=== PATIENT | female | born 1960 | race Two or more races ===

== ENCOUNTER 2017-12-03 13:12 | Emergency (ER) | payer MEDICAID ==
[2017-12-03 13:50] VITALS: BMI 26.4
[2017-12-03 13:58] VITALS: TEMP 98.3; O2SAT 98
[2017-12-03] MEDS ORDERED: Lidocaine 2% Inj (20ml) IJ STA (15:03)
--- NOTE | 2017-12-03 15:03 | ED PDOC ---
Arrival/HPI - General Chief Complaint: Abnormal Skin Integrity Time Seen by Provider: 12/03/17 14:51 Historian: Patient - History of Present Illness Narrative History of Present Illness (Text): 12/03/17 14:58 Pt is a 57 year old female who presents with a deep laceration to the left index finger. Pt states she was cuting a pineapple when the knife slipped and she cut her finger. The finger bled until she applied pressure and came to the ED immediately. Denies numbness, loss of motor function. NUTD on tetanus. Time/Duration: Prior to Arrival Symptom Onset: Sudden Symptom Course: Unchanged Quality: Aching Severity Level: 4 Activities at Onset: Rest Context: Home Past Medical History - Provider Review Nursing Documentation Reviewed: Yes - Travel History Have you recently traveled outside [place] w/in the past 3 mons?: No - Past History Past History: No Previous - Infectious Disease Hx of Infectious Diseases: None - Reproductive Menopause: Yes - Psychiatric Hx Substance Use: No - Anesthesia Hx Anesthesia: No Hx Anesthesia Reactions: No Hx Malignant Hyperthermia: No Family/Social History - Physician Review Nursing Documentation Reviewed: Yes Family/Social History: Unknown Family HX Smoking Status: Never Smoked Hx Alcohol Use: No Hx Substance Use: No Allergies/Home Meds Allergies/Adverse Reactions: Allergies No Known Allergies Allergy (Verified 09/28/16 01:04) Review of Systems - Review of Systems Constitutional: Normal Eyes: Normal ENT: Normal Respiratory: Normal Cardiovascular: Normal Gastrointestinal: Normal Genitourinary Female: Normal Musculoskeletal: Normal Skin: Normal, Laceration (left index finger) Neurological: Normal Endocrine: Normal Hemo/Lymphatic: Normal Psychiatric: Normal Physical Exam Vital Signs Reviewed: Yes Vital Signs Temp Pulse Resp BP Pulse Ox 12/03/17 17:37 80 18 124/76 98 12/03/17 13:50 98.3 F 90 16 143/82 98 Temperature: Afebrile Blood Pressure: Normal Pulse: Regular Respiratory Rate: Normal Appearance: Positive for: Well-Appearing, Non-Toxic, Comfortable Pain Distress: Mild Mental Status: Positive for: Alert and Oriented X 3 - Systems Exam Head: Present: Atraumatic, Normocephalic Pupils: Present: PERRL Extroacular Muscles: Present: EOMI Conjunctiva: Present: Normal Mouth: Present: Moist Mucous Membranes Neck: Present: Normal Range of Motion Respiratory/Chest: Present: Clear to Auscultation, Good Air Exchange. No: Respiratory Distress, Accessory Muscle Use Cardiovascular: Present: Regular Rate and Rhythm, Normal S1, S2. No: Murmurs Abdomen: Present: Normal Bowel Sounds. No: Tenderness, Distention, Peritoneal Signs Back: Present: Normal Inspection Upper Extremity: Present: Normal Inspection. No: Cyanosis, Edema Lower Extremity: Present: Normal Inspection. No: Edema Neurological: Present: GCS=15, CN II-XII Intact, Speech Normal, Motor Func Grossly Intact, Normal Sensory Function Skin: Present: Warm, Dry, Normal Color, Laceration (left index finger). No: Rashes Psychiatric: Present: Alert, Oriented x 3, Normal Insight, Normal Concentration Medical Decision Making ED Course and Treatment: 12/03/17 15:01 Impression Pt is a 57 year old female who presents with a deep laceration to the left index finger. Approximately 1cm in length and 6mm in depth laceration of the left index finger ; motor and sensation intact, good cap refill Plan Tetanus vacc pain management suture Progress Note wound was cleaned and digital block with Lidocaine 1% as well as local infiltration 4 sutures were placed using 4.0 nylon material wound was dressed and pt was instructed on wound care and follow up Pt tolerated the procedure well and stable on DC 12/03/17 20:48 - Medication Orders Current Medication Orders: Discontinued Medications Lidocaine HCl (Lidocaine 2% 20ml Vial) 20 ml IJ ONCE STA Stop: 12/03/17 15:04 Tetanus/Reduced Diphtheria/Acell Pertussis (Boostrix Vaccine Inj) 0.5 ml IM .ONCE ONE Stop: 12/03/17 15:05 Last Admin: 12/03/17 17:16 Dose: 0.5 ml Immunization Registry Document 12/03/17 17:16 GMD (Rec: 12/03/17 17:16 GMD [id number]) Immunization Registry Consent Date 07/29/17 - Procedure PROCEDURE NOTE (Text): 12/03/17 19:15 PROCEDURE: LACERATION REPAIR Performed by the emergency provider Location: Left index finger Length: approx 1 cm Description: clean wound edges, no foreign bodies Distal CMS: ~Normal.~ No deficits.~ Neurovascularly intact. Anesthesia: Lidocaine 1% 8cc digit block and local infiltration Preparation: The wound was cleaned with NS and Bet[place]. The area was prepped and draped in the usual sterile fashion.~ Exploration: ~ The wound was explored and no foreign bodies were found. Procedure: The wound was closed with 4.0 nylon.~ There was good approximation.~ In total, 4 were used. Post-Procedure: ~Good closure and hemostasis.~ The patient tolerated the procedure well and there were no complications.~ CSM remains intact.~ Post procedure dressing applied. Disposition/Present on Arrival - Present on Arrival Any Indicators Present on Arrival: Yes History of DVT/PE: No History of Uncontrolled Diabetes: No Urinary Catheter: No History of Decub. Ulcer: No History Surgical Site Infection Following: None - Disposition Have Diagnosis and Disposition been Completed?: Yes Diagnosis: Laceration Disposition: HOME/ ROUTINE Disposition Time: 17:22 Patient Plan: Discharge Condition: GOOD Discharge Instructions (ExitCare): Laceration Repair With Stitches (DC), Common Finger Injuries, Wound Care (DC) Additional Instructions: Dear Felisa, Please take care to read the information that we have supplied for you. Keep the wound clean and dry. apply Bacitracin in about 2 days when you change your dressing. No oral antibiotics required at this time. You will need to have your sutures removed in about 7-10 days. If you notice any reddening, swelling, bleeding or excessive pain from the wound , return to the Emergency immediately or see your Primary doctor All the best in your recovery Prescriptions: Bacitracin OINT 1 applic TP Q8 #1 tube Ibuprofen [Motrin Tab] 600 mg PO Q6 PRN 5 Days #20 tab PRN Reason: pain/fever Referrals: PCP,NO [Primary Care Provider] - Follow up with primary Forms: [employer] (Irish)
[2017-12-03] MEDS ORDERED: TDAP Vaccine 0.5 mL Syr IM ONE (15:04)
[2017-12-03 17:37] VITALS: BP 124/76; PULSE 80; RESP 18
== END 2017-12-03 17:38 | disposition home or self-care (01) ==
LOC: ED 13:12
DX: S61.211A Laceration without foreign body of left index finger without damage to nail, initial encounter (principal); W26.0XXA Contact with knife, initial encounter; Y92.009 Unspecified place in unspecified non-institutional (private) residence as the place of occurrence of the external cause; Z23 Encounter for immunization

== ENCOUNTER 2017-12-08 18:44 | Emergency (ER) | payer MEDICAID, OTHER ==
[2017-12-08 18:44] VITALS: BMI 26.4
[2017-12-08] MEDS ORDERED: Tmp-Smz 800 mg-160 mg DS Tab PO STA (18:59)
--- NOTE | 2017-12-08 18:59 | ED PDOC ---
Arrival/HPI - General Chief Complaint: Abnormal Skin Integrity Time Seen by Provider: 12/08/17 18:53 Historian: Patient - History of Present Illness Narrative History of Present Illness (Text): 12/08/17 19:00 57 year old female, here about 5 days ago with lt. hand 3rd digit finger sutures , went home, here today because the suture site is painful with the redness, no fever or chills, no night sweat, no difficulty bending or extending the lt. hand 3rd digit, no rash, no other medical or psychological complaints. Past Medical History - Provider Review Nursing Documentation Reviewed: Yes - Past History Past History: No Previous - Infectious Disease Hx of Infectious Diseases: None - Reproductive Menopause: Yes - Hematological/Oncological Hx Anemia: Yes - Psychiatric Hx Substance Use: No - Surgical History Hx Cholecystectomy: Yes - Anesthesia Hx Anesthesia: No Hx Anesthesia Reactions: No Hx Malignant Hyperthermia: No Family/Social History - Physician Review Nursing Documentation Reviewed: Yes Family/Social History: Unknown Family HX Smoking Status: Never Smoked Hx Alcohol Use: No Hx Substance Use: No Allergies/Home Meds Allergies/Adverse Reactions: Allergies No Known Allergies Allergy (Verified 12/08/17 18:53) Review of Systems - Review of Systems Constitutional: absent: Fatigue, Fevers Eyes: absent: Vision Changes ENT: absent: Hearing Changes Respiratory: absent: SOB, Cough Cardiovascular: absent: Chest Pain Gastrointestinal: absent: Abdominal Pain, Nausea, Vomiting Skin: Rash, Cellulitis. absent: Pruritis, Skin Lesions, Laceration, Abscess, Ulcer Neurological: absent: Headache, Dizziness Psychiatric: absent: Anxiety, Depression Physical Exam Vital Signs Reviewed: Yes Vital Signs Temp Pulse Resp BP Pulse Ox 12/08/17 18:47 98 F 74 18 136/84 98 Temperature: Afebrile Blood Pressure: Normal Pulse: Regular Respiratory Rate: Normal Appearance: Positive for: Well-Appearing, Non-Toxic, Comfortable Pain Distress: Mild Mental Status: Positive for: Alert and Oriented X 3 - Systems Exam Head: Present: Atraumatic, Normocephalic Pupils: Present: PERRL Extroacular Muscles: Present: EOMI Conjunctiva: Present: Normal Mouth: Present: Moist Mucous Membranes Neck: Present: Normal Range of Motion Respiratory/Chest: Present: Clear to Auscultation, Good Air Exchange. No: Respiratory Distress, Accessory Muscle Use Cardiovascular: Present: Regular Rate and Rhythm, Normal S1, S2. No: Murmurs Abdomen: Present: Normal Bowel Sounds. No: Tenderness, Distention, Peritoneal Signs Back: Present: Normal Inspection Upper Extremity: Present: Normal Inspection, Other (Lt. hand 3rd digit: visible 4 sutures with swelling pressure erythematous with celluitis noted with no streaking, no flucuancy abscess, FROM without limitation, sensation intact motor 5/5, +radial pulse, capillary refill< 2 seconds, neurovascular intact. ). No: Cyanosis, Edema Lower Extremity: Present: Normal Inspection. No: Edema Neurological: Present: GCS=15, Speech Normal, Motor Func Grossly Intact, Gait Normal, Memory Normal Skin: Present: Warm, Dry, Normal Color. No: Rashes Psychiatric: Present: Alert, Oriented x 3, Normal Insight, Normal Concentration Medical Decision Making ED Course and Treatment: 12/08/17 19:01 -keflex/bactrim ds/motrin -xray r/o foreign body or gas -4 sutures removed as the suture is infected which will causes inoculated infection, irrigated with 1000cc saline, clean with betadine, -observe and reassess 12/08/17 19:29 -Case discussed with Dr. Garber, he agreed on the diagnosis/treatment/discharge plan. -Discharge home with keflex, bactrim ds, motrin, wash the wound twice daily, return to the ER in 2 days, return to the ER for any new or worsening signs or symptoms. - RAD Interpretation Radiology Orders: 12/08/17 18:59 HAND LEFT 3RD DIGIT (FINGER) [RAD] Stat - Medication Orders Current Medication Orders: Discontinued Medications Cephalexin Monohydrate (Keflex) 500 mg PO STAT STA PRN Reason: Protocol Stop: 12/08/17 19:00 Ibuprofen (Motrin Tab) 600 mg PO STAT STA Stop: 12/08/17 19:00 Trimethoprim/Sulfamethoxazole (Bactrim Ds Tab) 1 tab PO STAT STA PRN Reason: Protocol Stop: 12/08/17 19:00 - PA / CHIEF MEDICAL PHYSICIST / Resident Statement MD/DO has reviewed & agrees with the documentation as recorded. Disposition/Present on Arrival - Present on Arrival Any Indicators Present on Arrival: No History of DVT/PE: No History of Uncontrolled Diabetes: No Urinary Catheter: No History of Decub. Ulcer: No History Surgical Site Infection Following: None - Disposition Have Diagnosis and Disposition been Completed?: Yes Diagnosis: Cellulitis Disposition: HOME/ ROUTINE Disposition Time: 19:18 Patient Plan: Discharge Patient Problems: Current Active Problems Problem Status Onset Cellulitis Acute Condition: GOOD Discharge Instructions (ExitCare): Cellulitis (ED) Additional Instructions: -Discharge home with keflex, bactrim ds, motrin, wash the wound twice daily, return to the ER in 2 days, return to the ER for any new or worsening signs or symptoms. Prescriptions: Cephalexin [cephalexin] 500 mg PO QID #38 cap Ibuprofen [Motrin] 600 mg PO QID PRN #30 tab PRN Reason: Other Sulfamethoxazole/Trimethoprim [Bactrim Ds Tablet] 1 each PO BID #20 tablet Referrals: Dion Augustine [Primary Care Provider] - Follow up with primary Dre Murphy MD [Staff Provider] - Follow up with primary Forms: WORK NOTE
[2017-12-08 19:51] VITALS: BP 130/72; PULSE 72; RESP 17; TEMP 98.2; O2SAT 100
--- NOTE | 2017-12-09 09:14 | RAD ---
PROCEDURE: Left middle finger radiographs. HISTORY: lt. hand 3rd digit cellulitis COMPARISON: None. TECHNIQUE: AP radiograph of the left hand, as well as spot oblique and lateral images of left middle finger were obtained. FINDINGS: LEFT MIDDLE FINGER: Left middle finger normal, without fracture of focal lesion. Remainder of the left hand (as seen on the AP view) is grossly unremarkable. JOINTS: Advanced osteoarthritis appreciate throughout the interphalangeal joints diffusely and also the basal joint. SOFT TISSUES: Prominent edema is appreciate the radial side of the middle phalanx left long finger with lesser edematous changes seen at the ulnar side. No retained radiodense foreign body or emphysema soft tissue changes are encountered. No definite periosteal reaction or erosion to suggest osteomyelitis however MRI is available for correlation if clinically warranted for OTHER FINDINGS: None. IMPRESSION: Prominent soft edema is seen at the midportion of the middle phalanx more in the radial the lateral sides without overt radiographic signs of osteomyelitis. Follow-up MRI can be utilized for further characterization if clinically warranted. 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
== END 2017-12-08 19:51 | disposition home or self-care (01) ==
LOC: ED 18:44
DX: L03.012 Cellulitis of left finger (principal)

== ENCOUNTER 2018-03-20 21:23 | Observation (INO) | payer MEDICAID ==
[2018-03-20 21:44] VITALS: BMI 23.4
[2018-03-20] MEDS ORDERED: Sodium Chloride 0.9% 1,000 ML IV SCH (22:00)
[2018-03-20 22:25] LABS: BASO # 0.01 K/mm3 (0.0-2.0); BASO % 0.2 % (0.0-3.0); EOS # 0.1 (0.0-0.7); EOS % 0.8 % (1.5-5.0); GRAN # 3.17 (1.4-6.5); GRAN % 51.8 % (50.0-68.0); HEMOGLOBIN 13.7 g/dL (12.0-16.0); LYMPH # 2.6 (1.2-3.4); LYMPH % 42.9 % (22.0-35.0); MEAN CELL VOLUME 74.4 fl (80.0-105.0); MEAN CORPUSCULAR HEMOGLOBIN 25.8 pg (25.0-35.0); MEAN CORPUSCULAR HGB CONC 34.7 g/dl (31.0-37.0); MEAN PLATELET VOLUME 10.2 fl (7.0-11.0); MONO # 0.3 (0.1-0.6); MONO % 4.3 % (1.0-6.0); RBC 5.31 10^6/uL (3.5-6.1); RED CELL DISTRIBUTION WIDTH 12.8 % (11.5-14.5); WHITE BLOOD COUNT 6.1 10^3/ul (4.5-11.0)
[2018-03-20 22:48] LABS: ALB/GLOB RATIO 1.2 (1.1-1.8); ALBUMIN 3.8 g/dL (3.0-4.8); ALT/SGPT 92 U/L (7-56); AST/SGOT 54 U/L (14-36); BLOOD UREA NITROGEN 14 mg/dL (7-21); CALCIUM 8.4 mg/dL (8.4-10.5); GFR AFRICAN-AMERICAN > 60; GFR NON-AFRICAN AMERICAN > 60
--- NOTE | 2018-03-20 23:08 | ED PDOC ---
Arrival/HPI - General Chief Complaint: High Blood Sugar Time Seen by Provider: 03/20/18 21:34 Historian: Patient - History of Present Illness Narrative History of Present Illness (Text): 03/20/18 21:47 57 year old female, with no significant past medical history, presents to the Emergency department complaining of elevated blood sugar since today. Patient states she was seen at [facility] satellite Emergency department earlier today, where she was informed of a blood sugar level of approximately 800 mg/dL. Patient was provided IV fluids with improvement to symptoms, blood sugar level of 600mg/dL and was asked to be transferred to [facility] for further evaluation. However patient denied transfer and signed out against medical advice. Patient now presents to the Emergency department for continuation of her treatment. Patient denies any somatic complaints. Patient denies any fever, chills, nausea, vomiting, diarrhea , abdominal pain, diaphoresis, polyuria, polydipsia, chest pain, shortness of breath or any other complaints. Time/Duration: 24 hours Symptom Onset: Gradual Symptom Course: Improving Activities at Onset: Light Context: Home Past Medical History - Provider Review Nursing Documentation Reviewed: Yes - Past History Past History: No Previous - Infectious Disease Hx of Infectious Diseases: None - Hematological/Oncological Hx Anemia: Yes - Psychiatric Hx Substance Use: No - Surgical History Hx Cholecystectomy: Yes - Anesthesia Hx Anesthesia: No Hx Anesthesia Reactions: No Hx Malignant Hyperthermia: No Family/Social History - Physician Review Nursing Documentation Reviewed: Yes Family/Social History: No Known Family HX Smoking Status: Never Smoked Hx Alcohol Use: No Hx Substance Use: No Allergies/Home Meds Allergies/Adverse Reactions: Allergies No Known Allergies Allergy (Verified 03/21/18 00:53) Home Medications: Home Meds Medication Instructions Recorded Confirmed Unobtainable 03/20/18 03/21/18 Review of Systems - Physician Review All systems were reviewed & negative as marked: Yes - Review of Systems Constitutional: Normal. absent: Fevers Eyes: Normal ENT: Normal Respiratory: Normal. absent: SOB Cardiovascular: Normal. absent: Chest Pain Gastrointestinal: Normal. absent: Abdominal Pain, Diarrhea, Nausea, Vomiting Genitourinary Female: Normal Musculoskeletal: Normal Skin: Normal Neurological: Normal Endocrine: Normal. absent: Diaphoresis, Polyuria, Polydipsia Hemo/Lymphatic: Normal Psychiatric: Normal Physical Exam Vital Signs Reviewed: Yes Vital Signs Temp Pulse Resp BP Pulse Ox 03/20/18 23:55 78 18 156/79 H 98 03/20/18 21:44 98 F 91 H 17 136/78 99 Temperature: Afebrile Blood Pressure: Normal Pulse: Regular Respiratory Rate: Normal Appearance: Positive for: Well-Appearing, Non-Toxic, Comfortable Pain Distress: None Mental Status: Positive for: Alert and Oriented X 3 Finger Stick Blood Glucose: 323 - Systems Exam Head: Present: Atraumatic, Normocephalic Pupils: Present: PERRL Extroacular Muscles: Present: EOMI Conjunctiva: Present: Normal Mouth: Present: Moist Mucous Membranes Neck: Present: Normal Range of Motion Respiratory/Chest: Present: Clear to Auscultation, Good Air Exchange. No: Respiratory Distress, Accessory Muscle Use Cardiovascular: Present: Regular Rate and Rhythm, Normal S1, S2. No: Murmurs Abdomen: No: Tenderness, Distention, Peritoneal Signs Back: Present: Normal Inspection Upper Extremity: Present: Normal Inspection. No: Cyanosis, Edema Lower Extremity: Present: Normal Inspection. No: Edema Neurological: Present: GCS=15, CN II-XII Intact, Speech Normal Skin: Present: Warm, Dry, Normal Color. No: Rashes Psychiatric: Present: Alert, Oriented x 3, Normal Insight, Normal Concentration Medical Decision Making ED Course and Treatment: 03/20/18 21:43 Impression: 57 year old female presents to the Emergency department for elevated blood sugar. Differential Diagnosis included but are not limited to: Diabetes Plan: -- Labs -- IV Fluids -- Reassess and disposition Prior Visits: Notes and results from previous visits were reviewed. Progress Notes: 03/20/18 21:50 Discussed case with medical record retrieval specialist and Dr. Jones, who are aware and agrees with Emergency department management plan, accepts patient under their service to Observation for new onset of diabetes. - Lab Interpretations Lab Results: 03/20/18 22:13 03/20/18 22:13 Lab Results 03/20/18 22:13: Serum Osmolality 308 H 03/20/18 22:13: Sodium 138, Potassium 4.2, Chloride 102, Carbon Dioxide 27, Anion Gap 13, BUN 14, Creatinine 0.5 L, Est GFR ( Amer) > 60, Est GFR ( Non-Af Amer) > 60, Random Glucose 393 H*, Calcium 8.4, Total Bilirubin 0.7, AST 54 H, ALT 92 H, Alkaline Phosphatase 210 H, Total Protein 7.1, Albumin 3.8, Globulin 3.3, Albumin/Globulin Ratio 1.2 03/20/18 22:13: WBC 6.1, RBC 5.31, Hgb 13.7, Hct 39.5, MCV 74.4 L, MCH 25.8, MCHC 34.7, RDW 12.8, Plt Count 146, MPV 10.2, Gran % 51.8, Lymph % (Auto) 42.9 H , Castro % (Auto) 4.3, Eos % (Auto) 0.8 L, Baso % (Auto) 0.2, Gran # 3.17, Lymph # (Auto) 2.6, Castro # (Auto) 0.3, Eos # (Auto) 0.1, Baso # (Auto) 0.01 03/20/18 21:43: POC Glucose (mg/dL) 323 H - Medication Orders Current Medication Orders: Sodium Chloride (Sodium Chloride 0.9%) 1,000 mls @ 150 mls/hr IV .[id number] [facility] Last Admin: 03/21/18 00:02 Dose: 150 mls/hr eMAR Start Stop Document 03/21/18 00:02 RD (Rec: 03/21/18 00:02 RD [id number]) Intravenous Solution Start Date 03/21/18 Start Time 00:02 Insulin Human Lispro (Humalog Med) 0 units SC [facility] PRN Reason: Protocol Last Admin: 03/21/18 00:28 Dose: 2 unit MAR Blood Glucose Document 03/21/18 00:28 RD (Rec: 03/21/18 00:29 RD [id number]) Blood Glucose Finger Stick Blood Glucose (70-120) 310 Subcutaneous Administrations Document 03/21/18 00:28 RD (Rec: 03/21/18 00:29 RD [id number]) Injection Site MAR Injection Site Left Arm Charges for Administration # of Subcutaneous Administrations 1 Discontinued Medications Sodium Chloride (Sodium Chloride 0.9%) 1,000 mls @ 80 mls/hr IV .[id number] [facility] Last Admin: 03/20/18 22:09 Dose: 80 mls/hr eMAR Start Stop Document 03/20/18 22:09 RD (Rec: 03/20/18 22:09 RD [id number]) Intravenous Solution Start Date 03/20/18 Start Time 22:09 End Date 18 End time 00:02 Total Infusion Time 113 - Scribe Statement The provider has reviewed the documentation as recorded by the Scribe Mehdi Albert. All medical record entries made by the Kerriibe were at my direction and personally dictated by me. I have reviewed the chart and agree that the record accurately reflects my personal performance of the history, physical exam, medical decision making, and the department course for this patient. I have also personally directed, reviewed, and agree with the discharge instructions and disposition. Disposition/Present on Arrival - Present on Arrival Any Indicators Present on Arrival: No History of DVT/PE: No History of Uncontrolled Diabetes: No Urinary Catheter: No History of Decub. Ulcer: No History Surgical Site Infection Following: None - Disposition Have Diagnosis and Disposition been Completed?: Yes Diagnosis: New onset type 2 diabetes mellitus Disposition: HOSPITALIZED Disposition Time: 23:00 Condition: FAIR
[2018-03-21] MEDS: Sodium Chloride 0.9% 1,000 ML IV SCH ×2 (00:02→21:27)
--- NOTE | 2018-03-21 00:14 | CP.PCM.HP ---
<Scott Felder - Last Filed: 03/21/18 00:55> History of Present Illness - History of Present Illness History of Present Illness: Ms. Reece is a 57 year old female with no PMH who presents with elevated blood sugar. She initially presented to her primary care physician for concerns of worsening polyuria and polydypsia and she was found to have a blood sugar of over 800. She was provided with IV fluids with improvement of symptoms and her blood sugar began to decrease. She was asked to be transferred to [facility] but refused admission there and came here to continue treatment. On admission here her blood sugar was 393. She reports increasing polydypsia and polyuria worsening over the past few months but denies fever, chills, chest pain, SOB, nausea, vomiting, abdominal pain. She admits to a family history of late-onset diabetes in her father. Denies family history of autoimmune diseases or cancers. PMHx: none PSHx: bladder sling Meds: none Allergies: NKDA Fam Hx: father, brother, and sister all have DM2 Social Hx: denies tobacco, alcohol, or drug use. Present on Admission - Present on Admission Any Indicators Present on Admission: Yes History of DVT/PE: No History of Uncontrolled Diabetes: Yes Urinary Catheter: No Decubitus Ulcer Present: No Review of Systems - Review of Systems All systems: reviewed and no additional remarkable complaints except (as mentioned in HPI) Past Patient History - Infectious Disease Hx of Infectious Diseases: None - Past Social History Smoking Status: Never Smoked - HEMATOLOGICAL/ONCOLOGICAL Hx Anemia: Yes - PSYCHIATRIC Hx Substance Use: No - SURGICAL HISTORY Hx Cholecystectomy: Yes - ANESTHESIA Hx Anesthesia: No Hx Anesthesia Reactions: No Hx Malignant Hyperthermia: No Meds Allergies/Adverse Reactions: Allergies Allergy/AdvReac Type Severity Reaction Status Date / Time No Known Allergies Allergy Verified 03/21/18 00:53 Physical Exam - Constitutional Appears: No Acute Distress - Head Exam Head Exam: ATRAUMATIC, NORMAL INSPECTION, NORMOCEPHALIC - Eye Exam Eye Exam: Normal appearance, PERRL - ENT Exam ENT Exam: Mucous Membranes Dry - Neck Exam Neck exam: Positive for: Normal Inspection - Respiratory Exam Respiratory Exam: Clear to Auscultation Bilateral, NORMAL BREATHING PATTERN. absent: Accessory Muscle Use, Chest Wall Tenderness, Rales, Rhonchi, Wheezes, Respiratory Distress, Stridor - Cardiovascular Exam Cardiovascular Exam: REGULAR RHYTHM, RRR, +S1, +S2. absent: Diastolic murmur, Gallop, Rubs, Systolic Murmur - GI/Abdominal Exam GI & Abdominal Exam: Normal Bowel Sounds, Soft. absent: Guarding, Rebound, Tenderness - Extremities Exam Extremities exam: Positive for: normal inspection. Negative for: calf tenderness, pedal edema - Neurological Exam Neurological exam: Alert, Oriented x3 - Psychiatric Exam Psychiatric exam: Normal Affect, Normal Mood - Skin Skin Exam: Dry, Intact, Warm Results - Vital Signs Recent Vital Signs: Last Vital Signs Temp 98 F 03/20/18 21:44 Pulse 78 03/20/18 23:55 Resp 18 03/20/18 23:55 BP 156/79 H 03/20/18 23:55 Pulse Ox 98 03/20/18 23:55 - Labs Result Diagrams: 03/20/18 22:13 03/20/18 22:13 Assessment & Plan - Assessment and Plan (Free Text) Assessment: Ms. Reece is a 57 year old female with no PMH who presents with new onset hyperglycemia and hyperosmolar hyperosmotic state. 1. Hyperglycemia/HHS -New onset diabetes mellitus diagnosis -Patient asymptomatic, no leukocytosis -Responding well to IVF, no need for insulin drip -Continue NS @ 150 cc/hr -Humalog sliding scale -Hemoglobin A1c, serum osmolality, UA ordered -Potassium of 4.2 on admission, will continue to monitor as patient continues insulin therapy Patient discussed with Dr. Mely Jones attending. Scott Felder DO Internal Medicine Resident PGY-1 <bIeth Jones - Last Filed: 03/22/18 01:00> Results - Vital Signs Recent Vital Signs: Last Vital Signs Temp 98.7 F 03/21/18 22:00 Pulse 75 03/21/18 22:00 Resp 18 03/21/18 22:00 BP 106/57 L 03/21/18 22:00 Pulse Ox 95 03/21/18 22:00 - Labs Result Diagrams: 03/21/18 06:45 03/21/18 06:45 Labs: Laboratory Results - last 24 hr 03/21/18 03/21/18 03/21/18 00:30 03:15 06:40 WBC RBC Hgb Hct MCV MCH MCHC RDW Plt Count MPV Gran % Lymph % (Auto) [place] % (Auto) Eos % (Auto) Baso % (Auto) Gran # Lymph # (Auto) [place] # (Auto) Eos # (Auto) Baso # (Auto) Sodium Potassium Chloride Carbon Dioxide Anion Gap BUN Creatinine Est GFR ( Amer) Est GFR (Non-Af Amer) POC Glucose (mg/dL) 303 H 282 H Random Glucose Calcium Total Bilirubin AST ALT Alkaline Phosphatase Total Protein Albumin Globulin Albumin/Globulin Ratio Triglycerides Cholesterol LDL Cholesterol Direct HDL Cholesterol TSH 3rd Generation Urine Color Yellow Urine Appearance Clear Urine pH 6.0 Ur Specific [place] 1.020 Urine Protein Negative Urine Glucose (UA) >=1000 Urine Ketones 40 H Urine Blood Small H Urine Nitrate Negative Urine Bilirubin Negative Urine Urobilinogen 0.2 Ur Leukocyte Esterase Negative Urine RBC 2 - 5 Urine WBC 0 - 2 Ur Epithelial Cells 1 - 3 Urine Bacteria Rare Urine Other Uyeast Hepatitis A IgM Ab Hep Bs Antigen Hep B Core IgM Ab Hepatitis C Antibody 03/21/18 03/21/18 03/21/18 06:45 06:45 06:45 WBC 4.8 D RBC 4.74 Hgb 11.9 L Hct 35.5 L MCV 74.9 L MCH 25.1 MCHC 33.5 RDW 12.9 Plt Count 128 MPV 10.5 Gran % 45.4 L Lymph % (Auto) 47.2 H [place] % (Auto) 5.7 Eos % (Auto) 1.5 Baso % (Auto) 0.2 Gran # 2.17 Lymph # (Auto) 2.3 [place] # (Auto) 0.3 Eos # (Auto) 0.1 Baso # (Auto) 0.01 Sodium 142 Potassium 4.0 Chloride 106 Carbon Dioxide 27 Anion Gap 13 BUN 12 Creatinine 0.6 L Est GFR ( Amer) > 60 Est GFR (Non-Af Amer) > 60 POC Glucose (mg/dL) Random Glucose 309 H* D Calcium 8.0 L Total Bilirubin 0.7 AST 44 H ALT 72 H Alkaline Phosphatase 154 H D Total Protein 6.0 Albumin 3.2 Globulin 2.8 Albumin/Globulin Ratio 1.1 Triglycerides 269 H Cholesterol 174 LDL Cholesterol Direct 105 HDL Cholesterol 27 L TSH 3rd Generation 2.13 Urine Color Urine Appearance Urine pH Ur Specific [place] Urine Protein Urine Glucose (UA) Urine Ketones Urine Blood Urine Nitrate Urine Bilirubin Urine Urobilinogen Ur Leukocyte Esterase Urine RBC Urine WBC Ur Epithelial Cells Urine Bacteria Urine Other Hepatitis A IgM Ab Hep Bs Antigen Hep B Core IgM Ab Hepatitis C Antibody 03/21/18 03/21/18 03/21/18 07:30 12:00 16:24 WBC RBC Hgb Hct MCV MCH MCHC RDW Plt Count MPV Gran % Lymph % (Auto) [place] % (Auto) Eos % (Auto) Baso % (Auto) Gran # Lymph # (Auto) [place] # (Auto) Eos # (Auto) Baso # (Auto) Sodium Potassium Chloride Carbon Dioxide Anion Gap BUN Creatinine Est GFR ( Amer) Est GFR (Non-Af Amer) POC Glucose (mg/dL) 215 H 259 H Random Glucose Calcium Total Bilirubin AST ALT Alkaline Phosphatase Total Protein Albumin Globulin Albumin/Globulin Ratio Triglycerides Cholesterol LDL Cholesterol Direct HDL Cholesterol TSH 3rd Generation Urine Color Urine Appearance Urine pH Ur Specific [place] Urine Protein Urine Glucose (UA) Urine Ketones Urine Blood Urine Nitrate Urine Bilirubin Urine Urobilinogen Ur Leukocyte Esterase Urine RBC Urine WBC Ur Epithelial Cells Urine Bacteria Urine Other Hepatitis A IgM Ab Negative Hep Bs Antigen Negative Hep B Core IgM Ab Negative Hepatitis C Antibody Negative 03/21/18 21:23 WBC RBC Hgb Hct MCV MCH MCHC RDW Plt Count MPV Gran % Lymph % (Auto) [place] % (Auto) Eos % (Auto) Baso % (Auto) Gran # Lymph # (Auto) [place] # (Auto) Eos # (Auto) Baso # (Auto) Sodium Potassium Chloride Carbon Dioxide Anion Gap BUN Creatinine Est GFR ( Amer) Est GFR (Non-Af Amer) POC Glucose (mg/dL) 290 H Random Glucose Calcium Total Bilirubin AST ALT Alkaline Phosphatase Total Protein Albumin Globulin Albumin/Globulin Ratio Triglycerides Cholesterol LDL Cholesterol Direct HDL Cholesterol TSH 3rd Generation Urine Color Urine Appearance Urine pH Ur Specific [place] Urine Protein Urine Glucose (UA) Urine Ketones Urine Blood Urine Nitrate Urine Bilirubin Urine Urobilinogen Ur Leukocyte Esterase Urine RBC Urine WBC Ur Epithelial Cells Urine Bacteria Urine Other Hepatitis A IgM Ab Hep Bs Antigen Hep B Core IgM Ab Hepatitis C Antibody
[2018-03-21 01:02] LABS: URINE BILIRUBIN NEGATIVE (NEGATIVE); URINE BLOOD SMALL (NEGATIVE); URINE GLUCOSE (UA) >=1000 mg/dL (NEGATIVE); URINE LEUKOCYTE ESTERASE NEGATIVE Leu/uL (NEGATIVE); URINE PROTEIN NEGATIVE mg/dL (<30 mg/dL); URINE UROBILINOGEN 0.2 E.U./dL (<1 E.U./dL)
[2018-03-21 01:12] LABS: URINE APPEARANCE CLEAR (CLEAR); URINE COLOR YELLOW (YELLOW)
[2018-03-21 01:29] LABS: URINE BACTERIA RARE (NEG); URINE WBC 0 - 2 /hpf (0-6)
[2018-03-21 07:10] LABS: BASO # 0.01 K/mm3 (0.0-2.0); BASO % 0.2 % (0.0-3.0); EOS # 0.1 (0.0-0.7); EOS % 1.5 % (1.5-5.0); GRAN # 2.17 (1.4-6.5); GRAN % 45.4 % (50.0-68.0); HEMOGLOBIN 11.9 g/dL (12.0-16.0); LYMPH # 2.3 (1.2-3.4); LYMPH % 47.2 % (22.0-35.0); MEAN CELL VOLUME 74.9 fl (80.0-105.0); MEAN CORPUSCULAR HEMOGLOBIN 25.1 pg (25.0-35.0); MEAN CORPUSCULAR HGB CONC 33.5 g/dl (31.0-37.0); MEAN PLATELET VOLUME 10.5 fl (7.0-11.0); MONO # 0.3 (0.1-0.6); MONO % 5.7 % (1.0-6.0); RBC 4.74 10^6/uL (3.5-6.1); RED CELL DISTRIBUTION WIDTH 12.9 % (11.5-14.5); WHITE BLOOD COUNT 4.8 10^3/ul (4.5-11.0)
[2018-03-21] MEDS ORDERED: Insulin Lispro (humaLOG) MEDIUM Coverage SC SCH (07:30)
[2018-03-21] MEDS ORDERED: Dextrose 50% SYRINGE Inj (50 ml) IV PRN (07:39)
[2018-03-21 07:40] LABS: LDL CHOLESTEROL 105 mg/dL (0-129)
[2018-03-21 07:51] LABS: ALB/GLOB RATIO 1.1 (1.1-1.8); ALBUMIN 3.2 g/dL (3.0-4.8); ALT/SGPT 72 U/L (7-56); AST/SGOT 44 U/L (14-36); BLOOD UREA NITROGEN 12 mg/dL (7-21); GFR AFRICAN-AMERICAN > 60; GFR NON-AFRICAN AMERICAN > 60; HDL CHOLESTEROL 27 mg/dL (29-60)
[2018-03-21] MEDS ORDERED: Insulin Lispro 1 UNITS/0.01 ML SC STA (08:08)
[2018-03-21] MEDS ORDERED: Insulin Lispro (HUMAlog) HIGH Coverage SC SCH (11:30)
[2018-03-21 11:50] LABS: HEPATITIS B SURFACE AG Negative (NEGATIVE)
[2018-03-21 11:57] LABS: HEPATITIS A IGM NEGATIVE (NEGATIVE); HEPATITIS B CORE AB NEGATIVE (NEGATIVE)
[2018-03-21 12:07] LABS: HEPATITIS C ANTIBODY NEGATIVE (NEGATIVE)
[2018-03-21] MEDS: Insulin Lispro 1 UNITS/0.01 ML SC SCH (17:07)
[2018-03-21] MEDS: Insulin Lispro (humaLOG) LOW Coverage SC SCH ×2 (17:08→21:30)
[2018-03-21] MEDS ORDERED: Insulin Detemir 100 units/ml Vial (Levemir) SC SCH (22:00)
--- NOTE | 2018-03-21 23:16 | CON ---
DATE: 03/21/2018 ENDOCRINOLOGY CONSULTATION LOCATION: Room 569. HISTORY OF PRESENT ILLNESS: This is a 57-year-old female with recent evaluation and diagnosis of uncontrolled type 2 insulin-requiring diabetes, presenting here from her primary physician's office with glucose levels over 800 mg/dL. She was actually advised to go to the [facility], but refused and came to the [facility] [place] for evaluation and eventual admission and is being referred now for diabetic management. PAST MEDICAL HISTORY As mentioned above, essentially unremarkable. PAST SURGICAL HISTORY: She had a prior cholecystectomy and also placement of a bladder sling. MEDICATIONS: No intake of any medications at this time. FAMILY HISTORY: Strongly positive for diabetes with her father and brother and a sister having type 2 diabetes. SOCIAL HISTORY: Patient has a supportive family. No known substance use. REVIEW OF SYSTEMS: As mentioned above. Admits to generalized body weakness with increasing dizziness and lightheadedness, worse in the last few days prior to admission. Also, admits to increasing hypersomnolence and lethargy with easy fatigability and tiredness. No chest pains or palpitations, but admits to occasional shortness of breath, especially on exertion. Her oral intake has been variable with nausea, dyspepsia, and vague upper abdominal pains. Admits to marked polyuria, nocturia, and polydipsia in the last month, but worse in the last few days prior to admission. Also admits to lower extremity paresthesias. PHYSICAL EXAMINATION: GENERAL: An average built female, in no apparent distress. VITAL SIGNS: Blood pressure of 140/80, pulse of 70 beats per minute and regular, temperature 98, respirations 20, height is 5 feet 2 inches, weight is 120 pounds. HEENT: Head: Normocephalic. Eyes: Anicteric with pink conjunctivae. Funduscopy is not possible at this time. Ears, nose and throat: Otherwise normal. NECK: Supple. Thyroid gland is normal in size. No carotid bruits or any cervical adenopathy. CARDIOPULMONARY: Some adynamic precordium. S1, S2 is rapid and regular. LUNGS: Clear to auscultation. ABDOMEN: Flat, soft with positive bowel sounds. EXTREMITIES: No peripheral edema. Pulses are +2 bilaterally. LABORATORY DATA: Her chemistries today show a BUN of 12, sodium 142, potassium 4, chloride 106, CO2 of 27, glucose 309, and creatinine 0.6. Her glucose levels have ranged from 215 to 282 and 303 and 310 mg/dL. ASSESSMENT: This is a 57-year-old female with uncontrolled and decompensated type 2 insulin-requiring diabetes of recent onset and evaluation, presenting here with hyperosmolar hyperglycemic state and dehydration with metabolic and clinical symptoms of marked osmotic diuresis from the hyperglycemic accelerations as noted. PLAN OF MANAGEMENT: Because of the presence of marked glucose toxicity with persistent hyperglycemic accelerations, the initiation of insulin therapy is the most optimal and effective management to improve her metabolic profile rather quickly. Many of the type 2 diabetics who are recently diagnosed may actually do very well on oral hypoglycemic therapy down the line as the pancreas recovers its endogenous pancreatic reserve. However, at this time, to give her oral hypoglycemic therapy will not work because of the marked glucose toxicity and increased insulin resistance thereof. We will initiate a basal and more physiologic basal and bolus insulin drug combination with Humalog to be started at 12 units subcu t.i.d. before meals to start today. We will also add basal insulin with Levemir to be given as 24 units subcu at bedtime daily as given. We will titrate incrementally as indicated to optimize metabolic control. We will modify the coverage scale to obviate hypoglycemia and detailed orders have been given. We will also continue the vigorous IV hydration to replenish the lost fluids and electrolytes as expected and also to improve her metabolic and clinical symptoms thereof. We will initiate diabetic education to include insulin self-administration and home glucose monitoring at this time. We will follow this. Nguyen Dent MD
[2018-03-22 06:37] LABS: BASO # 0.01 K/mm3 (0.0-2.0); BASO % 0.3 % (0.0-3.0); EOS # 0.1 (0.0-0.7); GRAN # 1.51 (1.4-6.5); GRAN % 38.2 % (50.0-68.0); HEMOGLOBIN 11.3 g/dL (12.0-16.0); LYMPH # 2.1 (1.2-3.4); LYMPH % 53.4 % (22.0-35.0); MEAN CELL VOLUME 74.7 fl (80.0-105.0); MEAN CORPUSCULAR HEMOGLOBIN 25.1 pg (25.0-35.0); MEAN CORPUSCULAR HGB CONC 33.5 g/dl (31.0-37.0); MEAN PLATELET VOLUME 10.4 fl (7.0-11.0); MONO # 0.2 (0.1-0.6); MONO % 6.1 % (1.0-6.0); RBC 4.51 10^6/uL (3.5-6.1)
[2018-03-22 07:18] LABS: ALBUMIN 2.8 g/dL (3.0-4.8); ALT/SGPT 76 U/L (7-56); AST/SGOT 53 U/L (14-36); BLOOD UREA NITROGEN 10 mg/dL (7-21); CALCIUM 7.7 mg/dL (8.4-10.5); GFR AFRICAN-AMERICAN > 60; GFR NON-AFRICAN AMERICAN > 60
[2018-03-22 08:20] VITALS: PULSE 63; RESP 20
--- NOTE | 2018-03-22 08:23 | CARD ---
APPROVED REPORT EKG Measurement Heart [id number] <Conclusion> Normal sinus rhythm Normal ECG
[2018-03-22] MEDS: Insulin Lispro 1 UNITS/0.01 ML SC SCH (08:50)
[2018-03-22] MEDS: Insulin Lispro (humaLOG) LOW Coverage SC SCH ×3 (08:51→16:43)
[2018-03-22] MEDS ORDERED: Potassium Chloride 20 mEq ER Tab PO STA (09:19)
[2018-03-22] MEDS ORDERED: Potassium Chloride 20 mEq ER Tab PO ONE ×2 (11:49→15:31)
[2018-03-22] MEDS ORDERED: Magnesium Sulfate 1 gm in D5W 1 GM/100 ML BAG IVPB ONE (15:31)
--- NOTE | 2018-03-22 15:51 | PN ---
DATE: 03/22/2018 ENDOCRINOLOGY FOLLOWUP NOTE LOCATION: Room 569. SUBJECTIVE: This is a 57-year-old female with recent evaluation and diagnosis of uncontrolled type 2 insulin-requiring diabetes, now being followed closely for metabolic management. Her glycemic levels were initially fluctuating, but have improved dramatically overnight as noted. Her glucose values today have ranged from 89 to 205 mg/dL. Her latest chemistry showed a BUN of 10, sodium 141, potassium 3.2, chloride 106, CO2 29, glucose 199 and creatinine 0.4. The bedtime glucose was still elevated at 290 mg/dL. Her hemoglobin A1c is 12.9%, which is quite elevated and expected with the recent diagnosis and the lack of medical treatment just before admission since she was just diagnosed with this admission in the hospital. As discussed with the medical technologist chief, we would expect improvement of her pancreatic endogenous reserve with the initiation of insulin therapy and would do very well over the next few weeks on oral hypoglycemic therapy given in combination or basal insulin at the lower dose given with oral hypoglycemic therapy with mealtimes. She needs to be followed very closely by her primary physician for insulin dose reduction and adjustment and switch her over to oral hypoglycemic therapy. With the glucose toxicity on admission and also inpatient, we expect tremendous increased insulin resistance thereof and that is the imperative need for insulin therapy for inpatient diabetic management. We will lower the basal and bolus insulin regimen for eventual discharge today to Humalog given as 10 units before each meal and Levemir given as 20 units at bedtime daily to start tonight. We will follow. Nguyen Dent MD
[2018-03-22] MEDS ORDERED: Insulin Lispro 1 UNITS/0.01 ML SC SCH (16:30)
[2018-03-22 17:28] VITALS: BP 98/60; TEMP 97.6; O2SAT 100
--- NOTE | 2018-03-22 21:45 | CP.PCM.DIS ---
<ElviaNissaurszula L - Last Filed: 03/22/18 21:49> Provider - Provider Date of Admission: 03/20/18 23:01 Attending physician: Zhanna Smith DO Consults: Endocrinology: Dr. Dent Time Spent in preparation of Discharge (in minutes): 45 Diagnosis - Discharge Diagnosis (1) New onset type 2 diabetes mellitus Status: Acute (2) Transaminitis Status: Acute (3) Anemia Status: Chronic (4) Hypertriglyceridemia Status: Acute Hospital Course - Lab Results Lab Results: Most Recent Lab Values WBC 4.0 10^3/ul (4.5-11.0) L 03/22/18 06:10 RBC 4.51 10^6/uL (3.5-6.1) 03/22/18 06:10 Hgb 11.3 g/dL (12.0-16.0) L 03/22/18 06:10 Hct 33.7 % (36.0-48.0) L 03/22/18 06:10 MCV 74.7 fl (80.0-105.0) L 03/22/18 06:10 MCH 25.1 pg (25.0-35.0) 03/22/18 06:10 MCHC 33.5 g/dl (31.0-37.0) 03/22/18 06:10 RDW 13.0 % (11.5-14.5) 03/22/18 06:10 Plt Count 100 10^3/uL (120.0-450.0) L 03/22/18 06:10 MPV 10.4 fl (7.0-11.0) 03/22/18 06:10 Gran % 38.2 % (50.0-68.0) L 03/22/18 06:10 Lymph % (Auto) 53.4 % (22.0-35.0) H 03/22/18 06:10 Grainger % (Auto) 6.1 % (1.0-6.0) H 03/22/18 06:10 Eos % (Auto) 2.0 % (1.5-5.0) 03/22/18 06:10 Baso % (Auto) 0.3 % (0.0-3.0) 03/22/18 06:10 Gran # 1.51 (1.4-6.5) 03/22/18 06:10 Lymph # (Auto) 2.1 (1.2-3.4) 03/22/18 06:10 Grainger # (Auto) 0.2 (0.1-0.6) 03/22/18 06:10 Eos # (Auto) 0.1 (0.0-0.7) 03/22/18 06:10 Baso # (Auto) 0.01 K/mm3 (0.0-2.0) 03/22/18 06:10 Sodium 141 mmol/L (132-148) 03/22/18 06:10 Potassium 3.2 mmol/L (3.6-5.0) L 03/22/18 06:10 Chloride 106 mmol/L (98-107) 03/22/18 06:10 Carbon Dioxide 29 mmol/L (21-33) 03/22/18 06:10 Anion Gap 10 (10-20) 03/22/18 06:10 BUN 10 mg/dL (7-21) 03/22/18 06:10 Creatinine 0.4 mg/dl (0.7-1.2) L 03/22/18 06:10 Est GFR ( Amer) > 60 03/22/18 06:10 Est GFR (Non-Af Amer) > 60 03/22/18 06:10 POC Glucose (mg/dL) 271 mg/dL (65-110) H 03/22/18 15:58 Random Glucose 199 mg/dL (70-110) H 03/22/18 06:10 Hemoglobin A1c 12.9 % (4.2-6.5) H 03/20/18 22:13 Serum Osmolality 308 mosm/kg (272-300) H 03/20/18 22:13 Calcium 7.7 mg/dL (8.4-10.5) L 03/22/18 06:10 Magnesium 1.6 mg/dL (1.7-2.2) L 03/22/18 06:10 Total Bilirubin 0.5 mg/dL (0.2-1.3) 03/22/18 06:10 AST 53 U/L (14-36) H D 03/22/18 06:10 ALT 76 U/L (7-56) H 03/22/18 06:10 Alkaline Phosphatase 131 U/L (38-126) H 03/22/18 06:10 Total Protein 5.7 g/dL (5.8-8.3) L 03/22/18 06:10 Albumin 2.8 g/dL (3.0-4.8) L 03/22/18 06:10 Globulin 2.9 gm/dL 03/22/18 06:10 Albumin/Globulin Ratio 1.0 (1.1-1.8) L 03/22/18 06:10 Triglycerides 269 mg/dL (35-160) H 03/21/18 06:45 Cholesterol 174 mg/dL (130-200) 03/21/18 06:45 LDL Cholesterol Direct 105 mg/dL (0-129) 03/21/18 06:45 HDL Cholesterol 27 mg/dL (29-60) L 03/21/18 06:45 TSH 3rd Generation 2.13 mIU/mL (0.46-4.68) 03/21/18 06:45 Urine Color Yellow (YELLOW) 03/21/18 00:30 Urine Appearance Clear (CLEAR) 03/21/18 00:30 Urine pH 6.0 (4.7-8.0) 03/21/18 00:30 Ur Specific Gardiner 1.020 (1.005-1.035) 03/21/18 00:30 Urine Protein Negative mg/dL (<30 mg/dL) 03/21/18 00:30 Urine Glucose (UA) >=1000 mg/dL (NEGATIVE) 03/21/18 00:30 Urine Ketones 40 mg/dL (NEGATIVE) H 03/21/18 00:30 Urine Blood Small (NEGATIVE) H 03/21/18 00:30 Urine Nitrate Negative (NEGATIVE) 03/21/18 00:30 Urine Bilirubin Negative (NEGATIVE) 03/21/18 00:30 Urine Urobilinogen 0.2 E.U./dL (<1 E.U./dL) 03/21/18 00:30 Ur Leukocyte Esterase Negative Derrick/uL (NEGATIVE) 03/21/18 00:30 Urine RBC 2 - 5 /hpf (0-2) 03/21/18 00:30 Urine WBC 0 - 2 /hpf (0-6) 03/21/18 00:30 Ur Epithelial Cells 1 - 3 /hpf (0-5) 03/21/18 00:30 Urine Bacteria Rare (NEG) 03/21/18 00:30 Urine Other Uyeast 03/21/18 00:30 Hepatitis A IgM Ab Negative (NEGATIVE) 03/21/18 07:30 Hep Bs Antigen Negative (NEGATIVE) 03/21/18 07:30 Hep B Core IgM Ab Negative (NEGATIVE) 03/21/18 07:30 Hepatitis C Antibody Negative (NEGATIVE) 03/21/18 07:30 - Hospital Course Hospital Course: Patient is a 57 year old female with no known PMH who presents with elevated blood sugar. She initially presented to urgent care for concerns of worsening polyuria and polydypsia and she was found to have a blood sugar of over 800. She was provided with IV fluids with improvement of symptoms and her blood sugar began to decrease. She was asked to be transferred to [facility] but refused admission there and came here to continue treatment. On admission here her blood sugar was 393. She reports increasing polydypsia and polyuria worsening over the past few months but denies fever, chills, chest pain , SOB, nausea, vomiting, abdominal pain. She admits to a family history of late- onset diabetes in her father. Denies family history of autoimmune diseases or cancers. In the ED she was given IV fluids and insulin which the patient responded well to. Endocrinology was consulted and patient was placed on basal and bolus insulin regimen. During the patient's stay in the hospital, she was also found to have elevated liver enzymes. Hepatitis panel was ordered and was negative. Patient was also found to be anemic. However patient states that she was diagnosed with anemia as a child and workup was not completed. Patient was educated on correct way to administer insulin and was asked to follow up with primary care doctor within the next week. Patient was further informed to return to the ED for worsening of symptoms. Discharge Exam - Additional Findings Additional findings: - Constitutional Appears: No Acute Distress - Head Exam Head Exam: ATRAUMATIC, NORMAL INSPECTION, NORMOCEPHALIC - Eye Exam Eye Exam: Normal appearance, PERRL - ENT Exam ENT Exam: Mucous Membranes Dry - Neck Exam Neck exam: Positive for: Normal Inspection - Respiratory Exam Respiratory Exam: Clear to Auscultation Bilateral, NORMAL BREATHING PATTERN. absent: Accessory Muscle Use, Chest Wall Tenderness, Rales, Rhonchi, Wheezes, Respiratory Distress, Stridor - Cardiovascular Exam Cardiovascular Exam: REGULAR RHYTHM, RRR, +S1, +S2. absent: Diastolic murmur, Gallop, Rubs, Systolic Murmur - GI/Abdominal Exam GI & Abdominal Exam: Normal Bowel Sounds, Soft. absent: Guarding, Rebound, Tenderness - Extremities Exam Extremities exam: Positive for: normal inspection. Negative for: calf tenderness, pedal edema - Neurological Exam Neurological exam: Alert, Oriented x3 - Psychiatric Exam Psychiatric exam: Normal Affect, Normal Mood - Skin Skin Exam: Dry, Intact, Warm Discharge Plan - Discharge Medications Prescriptions: Blood-Glucose Meter 1 each MC DAILY #1 kit Insulin Detemir [Levemir] 20 unit SC HS 30 Days unit Insulin Lispro [Humalog Kwikpen U-100] 10 unit SQ AC 30 Days insuln.pen Pen Needle, Diabetic [Insulin Pen Needle] 1 each MC HS 30 Days dis.needle Pen Needle, Diabetic [Caretouch Pen Needle] 1 each MC TID 30 Days dis.needle - Follow Up Plan Condition: FAIR Disposition: HOME/ ROUTINE Patient education suggested?: Yes Instructions: Blood Glucose Monitoring, Diabetes and Infections, Diabetic Meal Planning , Heart Disease in Diabetics , Diabetes and Diet, Diabetes in Older Adults Additional Instructions: - You were found to have diabetes with elevated blood sugar, you will need to check your sugar at least 3 times a day and give yourself insulin. Pharmacy will give you levemir, please inject 20 units before bed time. You will also get Humalog, please inject 10 units before each meals. Please make sure you check your fingerstick prior to injecting the humalog at every meal. If the Fingerstick is below 100, please don't give yourself insulin. Also if you planning to skip a meal, don't give yourself insulin. - You were also found to have abnormal liver numbers on your blood work, and will need repeat blood work to re-chech your liver numbers, so please follow up with your primary care doctor for repeat blood work -You will also need repeat blood work to check your potassium and magnesium levels as they are low here and your were given replacement while in the hospital. - Please call the primary care doctor provided to you by the insurance ( on your insurance card) to schedule an appointment within 3-5 days. Or you can come to [facility] scheduled on 03/29/18 at 12 pm. Referrals: [facility] at [facility] [Outside] <Zhanna Smith - Last Filed: 03/23/18 12:31> Provider - Provider Date of Admission: 03/20/18 23:01 Attending physician: Zhanna Smith DO [facility] Course - Lab Results Lab Results: Most Recent Lab Values WBC 4.0 10^3/ul (4.5-11.0) L 03/22/18 06:10 RBC 4.51 10^6/uL (3.5-6.1) 03/22/18 06:10 Hgb 11.3 g/dL (12.0-16.0) L 03/22/18 06:10 Hct 33.7 % (36.0-48.0) L 03/22/18 06:10 MCV 74.7 fl (80.0-105.0) L 03/22/18 06:10 MCH 25.1 pg (25.0-35.0) 03/22/18 06:10 MCHC 33.5 g/dl (31.0-37.0) 03/22/18 06:10 RDW 13.0 % (11.5-14.5) 03/22/18 06:10 Plt Count 100 10^3/uL (120.0-450.0) L 03/22/18 06:10 MPV 10.4 fl (7.0-11.0) 03/22/18 06:10 Gran % 38.2 % (50.0-68.0) L 03/22/18 06:10 Lymph % (Auto) 53.4 % (22.0-35.0) H 03/22/18 06:10 Grainger % (Auto) 6.1 % (1.0-6.0) H 03/22/18 06:10 Eos % (Auto) 2.0 % (1.5-5.0) 03/22/18 06:10 Baso % (Auto) 0.3 % (0.0-3.0) 03/22/18 06:10 Gran # 1.51 (1.4-6.5) 03/22/18 06:10 Lymph # (Auto) 2.1 (1.2-3.4) 03/22/18 06:10 Grainger # (Auto) 0.2 (0.1-0.6) 03/22/18 06:10 Eos # (Auto) 0.1 (0.0-0.7) 03/22/18 06:10 Baso # (Auto) 0.01 K/mm3 (0.0-2.0) 03/22/18 06:10 Sodium 141 mmol/L (132-148) 03/22/18 06:10 Potassium 3.2 mmol/L (3.6-5.0) L 03/22/18 06:10 Chloride 106 mmol/L (98-107) 03/22/18 06:10 Carbon Dioxide 29 mmol/L (21-33) 03/22/18 06:10 Anion Gap 10 (10-20) 03/22/18 06:10 BUN 10 mg/dL (7-21) 03/22/18 06:10 Creatinine 0.4 mg/dl (0.7-1.2) L 03/22/18 06:10 Est GFR ( Amer) > 60 03/22/18 06:10 Est GFR (Non-Af Amer) > 60 03/22/18 06:10 POC Glucose (mg/dL) 271 mg/dL (65-110) H 03/22/18 15:58 Random Glucose 199 mg/dL (70-110) H 03/22/18 06:10 Hemoglobin A1c 12.9 % (4.2-6.5) H 03/20/18 22:13 Serum Osmolality 308 mosm/kg (272-300) H 03/20/18 22:13 Calcium 7.7 mg/dL (8.4-10.5) L 03/22/18 06:10 Magnesium 1.6 mg/dL (1.7-2.2) L 03/22/18 06:10 Total Bilirubin 0.5 mg/dL (0.2-1.3) 03/22/18 06:10 AST 53 U/L (14-36) H D 03/22/18 06:10 ALT 76 U/L (7-56) H 03/22/18 06:10 Alkaline Phosphatase 131 U/L (38-126) H 03/22/18 06:10 Total Protein 5.7 g/dL (5.8-8.3) L 03/22/18 06:10 Albumin 2.8 g/dL (3.0-4.8) L 03/22/18 06:10 Globulin 2.9 gm/dL 03/22/18 06:10 Albumin/Globulin Ratio 1.0 (1.1-1.8) L 03/22/18 06:10 Triglycerides 269 mg/dL (35-160) H 03/21/18 06:45 Cholesterol 174 mg/dL (130-200) 03/21/18 06:45 LDL Cholesterol Direct 105 mg/dL (0-129) 03/21/18 06:45 HDL Cholesterol 27 mg/dL (29-60) L 03/21/18 06:45 TSH 3rd Generation 2.13 mIU/mL (0.46-4.68) 03/21/18 06:45 Urine Color Yellow (YELLOW) 03/21/18 00:30 Urine Appearance Clear (CLEAR) 03/21/18 00:30 Urine pH 6.0 (4.7-8.0) 03/21/18 00:30 Ur Specific Gardiner 1.020 (1.005-1.035) 03/21/18 00:30 Urine Protein Negative mg/dL (<30 mg/dL) 03/21/18 00:30 Urine Glucose (UA) >=1000 mg/dL (NEGATIVE) 03/21/18 00:30 Urine Ketones 40 mg/dL (NEGATIVE) H 03/21/18 00:30 Urine Blood Small (NEGATIVE) H 03/21/18 00:30 Urine Nitrate Negative (NEGATIVE) 03/21/18 00:30 Urine Bilirubin Negative (NEGATIVE) 03/21/18 00:30 Urine Urobilinogen 0.2 E.U./dL (<1 E.U./dL) 03/21/18 00:30 Ur Leukocyte Esterase Negative Derrick/uL (NEGATIVE) 03/21/18 00:30 Urine RBC 2 - 5 /hpf (0-2) 03/21/18 00:30 Urine WBC 0 - 2 /hpf (0-6) 03/21/18 00:30 Ur Epithelial Cells 1 - 3 /hpf (0-5) 03/21/18 00:30 Urine Bacteria Rare (NEG) 03/21/18 00:30 Urine Other Uyeast 03/21/18 00:30 Hepatitis A IgM Ab Negative (NEGATIVE) 03/21/18 07:30 Hep Bs Antigen Negative (NEGATIVE) 03/21/18 07:30 Hep B Core IgM Ab Negative (NEGATIVE) 03/21/18 07:30 Hepatitis C Antibody Negative (NEGATIVE) 03/21/18 07:30 Attending/Attestation - Attestation I have personally seen and examined this patient.: Yes I have fully participated in the care of the patient.: Yes I have reviewed all pertinent clinical information, including history, physical exam and plan: Yes Notes (Text): Patient seen and examined by me at 10:20 AM 03/22/18 with resident at bedside. Case including discharge planning discussed with resident. Agree with above with following additions/changes. Admitting diagnosis: 1. Hyperglycemia Discharge diagnosis: 1. New onset DM2 2. Hypokalemia 3. Hypertriglyceridemia 4. Anemia Consultants called: Endocrinology Dr. Dent Reason for admission: Patient is a 57-year-old female with no past medical history presented to the emergency room for evaluation of elevated blood sugar. Please see H&P for details. Hospital course: Patient is a 57-year-old female with no past medical history presented to the emergency room for evaluation of elevated blood sugar. Patient initially went to urgent care with polydipsia and polyuria. Patient at that time was found to have blood sugars in the 800s. Patient's blood sugars in the hospital in the 300s on arrival. Patient was initially placed on IV fluids and insulin sliding scale. Hemoglobin A1c was 12.9. Patient was seen by endocrinology, Dr. Dent. Patient was started on Levemir and Humalog. Blood sugars improved with this. Polydipsia and polyuria improved. She was also found to have elevated LFTs. Likely acute phase reactant secondary to hyperglycemia/ HHS. This was improving. Patient also found to have anemia. Patient has a history of anemia. Anemia also likely secondary to dilutional effect of IV fluids. Patient was advised to follow up with primary care doctor for further workup of anemia. All symptoms improved upon discharge. Patient was cleared for discharge endocrinology on Levemir 20 units at bedtime and Humalog 10 units subcutaneous before meals. Patient advised to diet and exercise for hypertriglyceridemia. Patient doing well upon discharge. Physical exam: Gen: Patient is awake and alert sitting up in bed in no acute distress HEENT: Normocephalic atraumatic, extraocular muscles intact, pupils equal reactive, oropharynx is pink and moist, no pharyngeal erythema or exudate appreciated, neck is supple. Cardiovascular: Normal rhythm, normal S1-S2, no murmurs rubs or gallops appreciated Pulmonary: Normal respiratory effort. No rhonchi, rales, or wheezing appreciated Gastrointestinal: Soft, nontender, nondistended, positive bowel sounds all 4 quadrants, no guarding Musculoskeletal: Moves all extremities, no calf tenderness, no CVA tenderness Central nervous system: AAO 3 Dermatologic: Skin warm and dry Follow-up instructions: Patient is check her blood sugar at least 3 times a day and give insulin. She does take Levemir 20 units at bedtime. Patient takes Humalog 10 units before meals. Patient to check blood sugar prior to taking Humalog. Patient advised not to take insulin if she is going to skip a meal. Patient to follow-up with primary care doctor for a recheck of her blood work for elevated liver enzymes, anemia, and potassium and magnesium levels. Patient follow-up with primary care doctor within 3-5 days or at [facility] scheduled at 03/29/2018 at 12 PM. All instructions regarding stranger patient in detail. Patient both understands and agrees to all instructions. Please see chart for full details. Time spent on discharging patient including chart review, medication reconciliation, discussion with the patient, consultants, and nursing staff was approximately 40 minutes. 03/23/18 12:30
[2018-03-22] MEDS ORDERED: Insulin Detemir 100 units/ml Vial (Levemir) SC SCH (22:00)
== END 2018-03-22 18:53 | disposition home or self-care (01) ==
LOC: ED 21:23 → ERH 23:01 → 5RNO 03-21 00:39
PROVIDERS: ADMIT Internal Medicine; ATTEND Hospitalist
DX: E11.65 Type 2 diabetes mellitus with hyperglycemia (principal); E11.00 Type 2 diabetes mellitus with hyperosmolarity without nonketotic hyperglycemic-hyperosmolar coma (NKHHC); E86.0 Dehydration; E87.6 Hypokalemia; E78.1 Pure hyperglyceridemia; D64.9 Anemia, unspecified; R74.8 Abnormal levels of other serum enzymes; Z79.4 Long term (current) use of insulin; Z83.3 Family history of diabetes mellitus
CPT/HCPCS: 36415; 80053; 80061; 80074; 81001; 82948; 83036; 83735; 83930; 84443; 85025; 93005; 96361; 96374; 99285; G0378; J3475; J7030